=== PATIENT | female | born 1950 | race Caucasian/White ===

== ENCOUNTER 2018-10-07 02:22 | Emergency (ER) | payer MEDICARE ==
[~2018-10-07] VITALS: Ht 162.6 cm; Wt 61.2 kg
[~2018-10-07 02:22] MED LIST: LEVAQUIN 500 M500 M4 PO; PREDNISONE 10 M10 MG PO; PROTONIX40 M1 PO
[2018-10-07 02:26] VITALS: BP 180/99
[2018-10-07] MEDS ORDERED: PREDNISONE50 MG PO (02:41)
[2018-10-07] MEDS ORDERED: CLEOCIN HCL150 MG PO (02:41)
== END 2018-10-07 02:48 | disposition home or self-care (01) ==
LOC: M.ERS 02:22
DX: R22.0 Localized swelling, mass and lump, head (principal); Z90.710 Acquired absence of both cervix and uterus; Z88.5 Allergy status to narcotic agent